=== PATIENT | male | born 1995 | race Caucasian/White ===

== ENCOUNTER 2017-12-23 05:29 | Inpatient (IN) ==
[2017-12-23 05:44] LABS: Bilirubin,Urine Negative (Negative); Blood,Urine Negative (Negative); Clarity,Urine Clear (Clear); Color,Urine Yellow (Yellow); Glucose,Urine (UA) Normal (Normal); Ketones,Urine Negative (Negative); Leukocyte Esterase,Urine Negative (Negative); Nitrite,Urine Negative (Negative); Protein,Urine Negative (Neg-Trace); Specific Gravity,Urine 1.009 (1.010-1.025); Urobilinogen,Urine Normal (Normal)
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
[2017-12-23 06:02] LABS: Basophils % 0.5 %; Eosinophils % 0.5 %; Hemoglobin 14.5 g/dL (12.9-16.9); Immature Granulocytes % 0.2 % (0-4); Lymphocytes # 2.9 K/mcL (0.6-4.6); Mean Corpuscular HGB Conc 35.4 g/dL (31.6-35.5); Mean Corpuscular Hemoglobin 33.5 pg (28.0-33.3); Mean Corpuscular Volume 94.7 fL (83.0-100.0); Monocytes # 0.4 K/mcL (0.0-1.3); Monocytes % 4.7 %; Neutrophils # 5.3 K/mcL (1.6-8.9); Platelet Count 385 K/mcL (140-400); Red Blood Count 4.33 M/mcL (4.19-5.50); Red Cell Distribution Width 11.7 % (11.5-14.5); Segmented Neutrophils % 61.1 %
[2017-12-23 06:11] LABS: Amphetamine Screen,Urine Negative ng/mL (Cutoff=1000); Barbiturate Screen,Urine Negative ng/mL (Cutoff=200); Benzodiazepines Screen,Urine Negative ng/mL (Cutoff=200); Cannabinoid Screen,Urine Positive ng/mL (Cutoff = 50); Cocaine Screen,Urine Negative ng/mL (Cutoff= 300); Opiate Screen,Urine Negative ng/mL (Cutoff=300); Phencyclidine Screen,Urine Negative ng/mL (Cutoff=25)
[2017-12-23 06:18] LABS: Acetaminophen < 10 mcg/mL (10-20)
[2017-12-23 06:22] LABS: BUN/Creatinine Ratio 7 (6-26); Blood Urea Nitrogen 6 mg/dL (6-20); Calcium 9.8 mg/dL (8.6-10.3); Carbon Dioxide 26 mEq/L (23-29); Chloride 108 mEq/L (98-107); Ethanol 98 mg/dL (Less than 10); Glucose 91 mg/dL (70-105); Osmolality,Calculated 293 (280-300); Potassium 3.5 mEq/L (3.5-5.1); Salicylate < 10.0 mg/dL (15.0-30.0); Sodium 143 mEq/L (136-145); eGFR For African Americans > 60 (> 60); eGFR For Non-African Americans > 60 (> 60)
--- NOTE | 2017-12-23 06:27 | Emergency Department Note ---
Disposition Clinical Impression: Acute anxiety Disposition: Still a Patient Condition: Fair Referrals: NONE,PCP [Primary Care Provider] - Forms: ED Satisfaction Letter General Adult HPI - General Chief complaint: ED Psychiatric Symptoms Stated complaint: anxiety depression Time Seen by Provider: 12/23/17 05:32 - Related Data Previous Rx's Medication Instructions Recorded TraZODone 100 mg PO HS PRN #60 tablet 06/20/16 clonazePAM [Klonopin] 0.5 mg PO TID #30 tablet 06/20/16 risperiDONE [RisperDAL] 2 mg PO BID #120 tablet 06/20/16 Naproxen [Naprosyn] 500 mg PO BID PRN #20 tablet 02/13/17 Allergies Allergy/AdvReac Type Severity Reaction Status Date / Time Penicillins Allergy Anaphylaxis Verified 10/03/15 10:55 Past Medical History - Past Medical History Medical history: Reports: no medical history Surgical history: Reports: no surgical history Psychiatric history: Reports: anxiety, depression - Social History Smoking Status: Current every day smoker Smokeless Tobacco Status: No Alcohol use: Reports: recent Drug use: Reports: marijuana, IV Drug Use Medical Decision Making - Lab Data Result diagrams: 12/23/17 05:32 12/23/17 05:32 Lab Results 12/23/17 12/23/17 12/23/17 Range/Units 05:32 05:32 05:35 WBC 8.7 (4.3-11.1) K/mcL RBC 4.33 (4.19-5.50) M/mcL Hgb 14.5 (12.9-16.9) g/dL Hct 41.0 (37.5-50.1) % MCV 94.7 (83.0-100.0) fL MCH 33.5 H (28.0-33.3) pg MCHC 35.4 (31.6-35.5) g/dL RDW 11.7 (11.5-14.5) % Plt Count 385 (140-400) K/mcL MPV 9.0 L (9.4-12.4) fL Immature Gran % 0.2 (0-4) % Seg Neutrophils % 61.1 % Lymphocytes % 33.0 % Monocytes % 4.7 % Eosinophils % 0.5 % Basophils % 0.5 % Neutrophils # 5.3 (1.6-8.9) K/mcL Lymphocytes # 2.9 (0.6-4.6) K/mcL Monocytes # 0.4 (0.0-1.3) K/mcL Eosinophils # 0.0 (0.0-0.6) K/mcL Basophils # 0.0 (0.0-0.2) K/mcL Sodium 143 (136-145) mEq/L Potassium 3.5 (3.5-5.1) mEq/L Chloride 108 H (98-107) mEq/L Carbon Dioxide 26 (23-29) mEq/L BUN 6 (6-20) mg/dL Creatinine 0.82 (0.70-1.30) mg/dL Est GFR ( Amer) > 60 (> 60) Est GFR (Non-Af Amer) > 60 (> 60) BUN/Creatinine Ratio 7 (6-26) Glucose 91 (70-105) mg/dL Calculated Osmolality 293 (280-300) Calcium 9.8 (8.6-10.3) mg/dL Urine Color Yellow (Yellow) Urine Clarity Clear (Clear) Urine pH 7.0 (5.0-8.0) pH Units Ur Specific [place] 1.009 L (1.010-1.025) Urine Protein Negative (Neg-Trace) mg/dL Urine Glucose (UA) Normal (Normal) mg/dL Urine Ketones Negative (Negative) mg/dL Urine Blood Negative (Negative) Urine Nitrite Negative (Negative) Urine Bilirubin Negative (Negative) Urine Urobilinogen Normal (Normal) mg/dL Ur Leukocyte Esterase Negative (Negative) Salicylates < 10.0 L (15.0-30.0) mg/dL Urine Opiates Screen (Fkzkxr=453) ng/mL Acetaminophen < 10 L (10-20) mcg/mL Ur Barbiturates Screen (Itdadu=414) ng/mL Ur Phencyclidine Scrn (Cutoff=25) ng/mL Ur Amphetamines Screen (Cqbobc=9369) ng/mL U Benzodiazepines Scrn (Fupxmh=141) ng/mL Urine Cocaine Screen (Cutoff= 300) ng/mL U Marijuana (THC) Screen (Cutoff = 50) ng/mL Ethyl Alcohol 98 H (Less than 10) mg/dL 12/23/17 Range/Units 05:35 WBC (4.3-11.1) K/mcL RBC (4.19-5.50) M/mcL Hgb (12.9-16.9) g/dL Hct (37.5-50.1) % MCV (83.0-100.0) fL MCH (28.0-33.3) pg MCHC (31.6-35.5) g/dL RDW (11.5-14.5) % Plt Count (140-400) K/mcL MPV (9.4-12.4) fL Immature Gran % (0-4) % Seg Neutrophils % % Lymphocytes % % Monocytes % % Eosinophils % % Basophils % % Neutrophils # (1.6-8.9) K/mcL Lymphocytes # (0.6-4.6) K/mcL Monocytes # (0.0-1.3) K/mcL Eosinophils # (0.0-0.6) K/mcL Basophils # (0.0-0.2) K/mcL Sodium (136-145) mEq/L Potassium (3.5-5.1) mEq/L Chloride (98-107) mEq/L Carbon Dioxide (23-29) mEq/L BUN (6-20) mg/dL Creatinine (0.70-1.30) mg/dL Est GFR ( Amer) (> 60) Est GFR (Non-Af Amer) (> 60) BUN/Creatinine Ratio (6-26) Glucose (70-105) mg/dL Calculated Osmolality (280-300) Calcium (8.6-10.3) mg/dL Urine Color (Yellow) Urine Clarity (Clear) Urine pH (5.0-8.0) pH Units Ur Specific [place] (1.010-1.025) Urine Protein (Neg-Trace) mg/dL Urine Glucose (UA) (Normal) mg/dL Urine Ketones (Negative) mg/dL Urine Blood (Negative) Urine Nitrite (Negative) Urine Bilirubin (Negative) Urine Urobilinogen (Normal) mg/dL Ur Leukocyte Esterase (Negative) Salicylates (15.0-30.0) mg/dL Urine Opiates Screen Negative (Yzahix=084) ng/mL Acetaminophen (10-20) mcg/mL Ur Barbiturates Screen Negative (Tugwmt=008) ng/mL Ur Phencyclidine Scrn Negative (Cutoff=25) ng/mL Ur Amphetamines Screen Negative (Vzxger=0916) ng/mL U Benzodiazepines Scrn Negative (Jiqzqk=671) ng/mL Urine Cocaine Screen Negative (Cutoff= 300) ng/mL U Marijuana (THC) Screen Positive H (Cutoff = 50) ng/mL Ethyl Alcohol (Less than 10) mg/dL Attestation Statement - Attestation Attestation: I examined this patient and my medical decision-making was reviewed with the Resident Physician. I agree with the documented findings, disposition and treatment plan as described except to the extent set forth below. Patient to the ED complaining of anxiety. Medication noncompliance. Feels like he is gone and the devil. Patient appears anxious and paranoid on examination. Cooperative. Lungs clear. Plan. Medical clearance and evaluation by 1A. his alcohol level here is in the 90s. We will need a repeat. Sign out to day shift.
[2017-12-23] MEDS ORDERED: *HR* LORazepam 2 MG/ML VIAL IM ONE (09:09)
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
[2017-12-23] MEDS ORDERED: *HR* LORazepam 2 MG/ML VIAL IM PRN (11:39)
[2017-12-23] MEDS ORDERED: Ibuprofen 400 MG TABLET PO PRN (11:39)
[2017-12-23] MEDS ORDERED: MOM Conc 10 ML UD.LIQ PO PRN (11:39)
[2017-12-23] MEDS ORDERED: *HR* LORazepam 1 MG TABLET PO PRN (11:39)
[2017-12-23] MEDS ORDERED: Haloperidol Lactate 5 MG/ML VIAL IM PRN (11:39)
[2017-12-23] MEDS ORDERED: Mag Hydrox/Al Hydrox/Simeth 30 ML UDC PO PRN (11:39)
[2017-12-23] MEDS: Nicotine 2 MG GUM BC PRN ×2 (13:13→17:32)
--- NOTE | 2017-12-23 17:03 | Psychiatry History & Physical ---
Date of Encounter: 12/23/17 Time of Encounter: 17:00 History of Present Illness Patient Stated Chief Complaint: I thought I was seeing deamons, I held my ativan so I could go to work Medicare Admission Attestation: For traditional Medicare patients the provided hospital inpatient services are reasonable and necessary and in the case of services not specified as inpatient -only under 42 CFR 419.22 (n), that they are appropriately provided as inpatient services in accordance 42 CFR 412.3. For Critical Access Hospital the patient may reasonably be expected to be discharged or transferred to a hospital within 96 hours after admission to the Critical Access Hospital. Admitted From: Emergency Dept Plans for Post Hospital Care: Home History of Present Illness: Mr. Ybarra is a 22 year old male The patient was previously hospitalized in 2016 he carries a diagnosis of bipolar disorder. The patient presented to the emergency room and an agitated state. He was seeing demons he talked about being able to see got into different ways. The patient was so agitated that he required emergency treatment. He was given Ativan 2 mg IM and home down sufficiently to be interviewed later in the day. The patient can recall hearing voices of bleeding things were not true and psychotic symptoms. The patient had managed his symptoms by taking sertraline in the morning and then holding onto his Ativan to take 2 mg prior to going to work. He likes his work environment and is called out sick today. The patient could not specify how long this episode going on he has been receiving outpatient mental health services. The reader is referred to the previous discharge summary. The patient's past psychiatric history reveals no suicide attempts. There is one entry about anxiety on the remission for the parts the record. Past medical history is negative for surgery. Negative for illnesses. The patient has an allergy to penicillins. The reader is referred to his outside records for meds. The patient has family history is significant for father with the drinking problem was later on psychiatric medicines and a paternal grandfather had problems. Is negative for drug abuse of than marijuana according to the patient. Social history reveals the patient went to 10th grade at age 18 he was able to get a job and support his mother and other family members because he needed it. There is no other source of income family. The review of systems essentially negative the patient describes himself as a healthy individual. The patient's past treatment has included risperidone sertraline he did not receive Geodon IM he is willing to consider Abilify Past Med Surg Social Fam HX - Past Medical History Source: patient Medical history: no medical history - Past Psychiatric History Psychiatric history: Reports: bipolar, previous psychiatric hospitalization Family psychiatric history: Yes Family History of Suicide: Unknown - Past Surgical History Surgical History: no surgical history - Social History Smoking Status: Current every day smoker Smokeless Tobacco Status: No Alcohol use: none, recent Drug use: marijuana, IV Drug Use Occupational status: employed Current living situation: Home - Independent, With Family Activity Level: Independent ambulation Recent Out of Country Travel Within the Last 8 Weeks: No Exposure or Possible Exposure to Illness During Travel: No Medications & Allergies LORazepam [Ativan] 0.5 mg PO BID 12/23/17 [History] LORazepam [Ativan] 1 mg PO HS 12/23/17 [History] Sertraline [Zoloft] 50 mg PO BID 12/23/17 [History] 3 Allergy/AdvReac Type Severity Reaction Status Date / Time Penicillins Allergy Anaphylaxis Verified 10/03/15 10:55 Review of Systems Psychiatric: Reports: abnormal sleep pattern, suicidal ideation, auditory hallucinations, visual hallucinations, mood swings Exam - HEENT Head exam IM: Present: atraumatic Eye exam IM: Present: EOMI, normal appearance, PERRL ENT exam IM: Present: normal exam - Neurological Neurological exam: Present: CN II-XII intact - Respiratory Respiratory exam IM: Present: CTAB - GI/Abdominal GI/Abdominal exam IM: Present: normal bowel sounds, soft. Absent: tenderness - Extremities Extremities exam IM: Present: full ROM - Skin Skin exam IM: Present: dry, warm - Constitutional Vitals: Temp Pulse Resp BP Pulse Ox 97.9 F 74 18 122/88 98 12/23/17 10:30 12/23/17 10:30 12/23/17 10:30 12/23/17 10:30 12/23/17 09:29 General appearance: age & developmentally appropriate, well-groomed, well- nourished - Musculoskeletal Gait: normal Station: relaxed Strength & Tone: normal for patient - Psychiatric Patient Orientation: Yes Person, Yes Time, Yes Place Level of alertness: Alert Behavior: calm, cooperative Psychomotor activity: Normal Eye Contact: Maintains Eye Contact Mood Description: Elevated, Expansive Affect description: congruent with mood, full range, anxious Speech Volume: Normal Speech pattern: normal rate, normal rhythm, normal tone, fluent, spontaneous Language & Vocabulary: consistent with education Thought Process: Linear, Goal Oriented Thought Content: No Suicidal ideation, No Homicidal ideation, No Overt delusions , Yes Mormonism delusion Perceptual Disturbances: Yes Auditory hallucinations, Yes Visual hallucinations Attention Span Ability: Capable of Focused Attention Memory Description: Grossly Intact Patient Reliability: Reliable Historian Fund of knowledge: Yes abstraction ability, Yes average, Yes aware of current events Intelligence Estimate: Average Judgment: Limited Insight: Partial Results - Labs Labs: Laboratory Last Values WBC 8.7 K/mcL (4.3-11.1) 12/23/17 05:32 RBC 4.33 M/mcL (4.19-5.50) 12/23/17 05:32 Hgb 14.5 g/dL (12.9-16.9) 12/23/17 05:32 Hct 41.0 % (37.5-50.1) 12/23/17 05:32 MCV 94.7 fL (83.0-100.0) 12/23/17 05:32 MCH 33.5 pg (28.0-33.3) H 12/23/17 05:32 MCHC 35.4 g/dL (31.6-35.5) 12/23/17 05:32 RDW 11.7 % (11.5-14.5) 12/23/17 05:32 Plt Count 385 K/mcL (140-400) 12/23/17 05:32 MPV 9.0 fL (9.4-12.4) L 12/23/17 05:32 Immature Gran % 0.2 % (0-4) 12/23/17 05:32 Seg Neutrophils % 61.1 % 12/23/17 05:32 Lymphocytes % 33.0 % 12/23/17 05:32 Monocytes % 4.7 % 12/23/17 05:32 Eosinophils % 0.5 % 12/23/17 05:32 Basophils % 0.5 % 12/23/17 05:32 Neutrophils # 5.3 K/mcL (1.6-8.9) 12/23/17 05:32 Lymphocytes # 2.9 K/mcL (0.6-4.6) 12/23/17 05:32 Monocytes # 0.4 K/mcL (0.0-1.3) 12/23/17 05:32 Eosinophils # 0.0 K/mcL (0.0-0.6) 12/23/17 05:32 Basophils # 0.0 K/mcL (0.0-0.2) 12/23/17 05:32 Sodium 143 mEq/L (136-145) 12/23/17 05:32 Potassium 3.5 mEq/L (3.5-5.1) 12/23/17 05:32 Chloride 108 mEq/L (98-107) H 12/23/17 05:32 Carbon Dioxide 26 mEq/L (23-29) 12/23/17 05:32 BUN 6 mg/dL (6-20) 12/23/17 05:32 Creatinine 0.82 mg/dL (0.70-1.30) 12/23/17 05:32 Est GFR ( Amer) > 60 (> 60) 12/23/17 05:32 Est GFR (Non-Af Amer) > 60 (> 60) 12/23/17 05:32 BUN/Creatinine Ratio 7 (6-26) 12/23/17 05:32 Glucose 91 mg/dL (70-105) 12/23/17 05:32 Calculated Osmolality 293 (280-300) 12/23/17 05:32 Calcium 9.8 mg/dL (8.6-10.3) 12/23/17 05:32 Urine Color Yellow (Yellow) 12/23/17 05:35 Urine Clarity Clear (Clear) 12/23/17 05:35 Urine pH 7.0 pH Units (5.0-8.0) 12/23/17 05:35 Ur Specific [place] 1.009 (1.010-1.025) L 12/23/17 05:35 Urine Protein Negative mg/dL (Neg-Trace) 12/23/17 05:35 Urine Glucose (UA) Normal mg/dL (Normal) 12/23/17 05:35 Urine Ketones Negative mg/dL (Negative) 12/23/17 05:35 Urine Blood Negative (Negative) 12/23/17 05:35 Urine Nitrite Negative (Negative) 12/23/17 05:35 Urine Bilirubin Negative (Negative) 12/23/17 05:35 Urine Urobilinogen Normal mg/dL (Normal) 12/23/17 05:35 Ur Leukocyte Esterase Negative (Negative) 12/23/17 05:35 Salicylates < 10.0 mg/dL (15.0-30.0) L 12/23/17 05:32 Urine Opiates Screen Negative ng/mL (Quhakb=104) 12/23/17 05:35 Acetaminophen < 10 mcg/mL (10-20) L 12/23/17 05:32 Ur Barbiturates Screen Negative ng/mL (Ajzhru=561) 12/23/17 05:35 Ur Phencyclidine Scrn Negative ng/mL (Cutoff=25) 12/23/17 05:35 Ur Amphetamines Screen Negative ng/mL (Szhada=3772) 12/23/17 05:35 U Benzodiazepines Scrn Negative ng/mL (Rpwcvo=582) 12/23/17 05:35 Urine Cocaine Screen Negative ng/mL (Cutoff= 300) 12/23/17 05:35 U Marijuana (THC) Screen Positive ng/mL (Cutoff = 50) H 12/23/17 05:35 Ethyl Alcohol 55 mg/dL (Less than 10) H 12/23/17 07:34 Assessment and Plan (1) Bipolar disorder, current episode manic severe with psychotic features Current visit: Yes Status: Acute Plan: Admit inpatient for safety and stabilization, Close observation, Encourage participation in unit milieu, Monitor sleep, Secure weapons Risks, benefits, side effects, alternatives discussed w/pt: Yes Patient agreeable to treatment: Yes Plans for Post Hospital Care: Home Estimated Length of Stay ( Days): 4
[2017-12-23] MEDS: *HR* LORazepam 1 MG TABLET PO SCH (22:03)
[2017-12-23] MEDS: traZODone 50 MG TABLET PO PRN (22:03)
[2017-12-24] MEDS: ARIPiprazole 10 MG TABLET PO SCH (08:34)
[2017-12-24] MEDS: *HR* LORazepam 1 MG TABLET PO SCH ×3 (08:34→21:40)
[2017-12-24] MEDS: Nicotine 2 MG GUM BC PRN ×2 (09:19→21:55)
--- NOTE | 2017-12-24 10:44 | Psychiatry Progress Note ---
Date of Encounter: 12/24/17 Time of Encounter: 10:40 Subjective Interval history: Client is still very anxious and jittery. Sweaty palms. Pleasant but jumpy. Wanting a higher dose of Ativan. Already scheduled for three times a day. Discussed risk for increased tolerance. Suggested he try prn Vistaril for breakthrough symptoms. Requesting Buspar as this reportedly helped someone he met who also had anxiety. Discussed how Buspar is not an immediate fix but can help with anxiety over time. Took first dose of Abilify today. Denies side effects but too early to know if it will provide any benefit. Client endorses SI but denies any intent. More of a passive wish given his high levels of anxiety. Will order Buspar and prn Vistaril. Continue Abilify and Ativan for now since these meds are new. Review of Systems Constitutional: Denies: fever, chills, weakness, weight change Eyes: Denies: eye pain, vision change Ears, Nose, Throat: Denies: ear pain, throat pain, dental pain, hearing loss, congestion Cardiovascular: Denies: chest pain, palpitations, dyspnea on exertion Respiratory: Denies: cough, dyspnea, wheezes Gastrointestinal: Denies: abdominal pain, nausea, vomiting, diarrhea, constipation Musculoskeletal: Denies: joint swelling, joint pain Neurological: Denies: headache, weakness, numbness, memory loss Psychiatric: Reports: abnormal sleep pattern, suicidal ideation, auditory hallucinations, visual hallucinations, mood swings Results - Vital Signs Vital Signs: Temp Pulse Resp BP Pulse Ox 98.6 F 73 20 120/74 98 12/24/17 09:00 12/24/17 09:00 12/24/17 09:00 12/24/17 09:00 12/23/17 09:29 Assessment and Plan (1) Bipolar disorder, current episode manic severe with psychotic features Current visit: Yes Status: Acute Plan: Continue hospitalization, Close observation, Suicide Precautions per unit protocol, Encourage participation in unit milieu, Group Therapy, Monitor sleep, Monitor appetite Risks, benefits, side effects, alternatives discussed w/pt: Yes Patient agreeable to treatment: Yes Consult Discharge Plan - Plan Referrals: NONE,PCP [Primary Care Provider] - Psychiatry Exam - Constitutional Vitals: Temp Pulse Resp BP Pulse Ox 98.6 F 73 20 120/74 98 12/24/17 09:00 12/24/17 09:00 12/24/17 09:00 12/24/17 09:00 12/23/17 09:29 General appearance: age & developmentally appropriate, well-groomed, well- nourished - Musculoskeletal Gait: normal Station: shaky Strength & Tone: normal for patient - Psychiatric Patient Orientation: Yes Person, Yes Time, Yes Place Level of alertness: Alert Behavior: anxious Psychomotor activity: Increased Eye Contact: Maintains Eye Contact Mood Description: Anxious Affect description: congruent with mood Speech Volume: Normal Speech pattern: normal rate, normal rhythm, normal tone, fluent, spontaneous Language & Vocabulary: consistent with education Thought Process: Linear Thought Content: Yes Suicidal ideation, No Homicidal ideation, No Overt delusions Perceptual Disturbances: No Auditory hallucinations, No Visual hallucinations Attention Span Ability: Capable of Focused Attention Memory Description: Grossly Intact Patient Reliability: Reliable Historian Fund of knowledge: Yes abstraction ability, Yes aware of current events Intelligence Estimate: Average Judgment: Fair Insight: Partial
[2017-12-24] MEDS: traZODone 50 MG TABLET PO PRN (21:40)
[2017-12-25] MEDS: ARIPiprazole 10 MG TABLET PO SCH (08:48)
[2017-12-25] MEDS: *HR* LORazepam 1 MG TABLET PO SCH ×3 (08:48→20:48)
[2017-12-25] MEDS: Nicotine 2 MG GUM BC PRN ×4 (09:51→21:07)
--- NOTE | 2017-12-25 16:16 | Psychiatry Progress Note ---
Date of Encounter: 12/25/17 Time of Encounter: 15:45 Subjective Interval history: Patient seen for follow-up. Case discussed with the treatment team. Staff report patient is cooperative, medication compliant, denies suicidal ideation and attend group activities. Review of Systems Psychiatric: Reports: abnormal sleep pattern, suicidal ideation, auditory hallucinations, visual hallucinations, mood swings Results - Vital Signs Vital Signs: Temp Pulse Resp BP Pulse Ox 98.4 F 83 16 116/71 98 12/25/17 09:00 12/25/17 09:00 12/25/17 09:00 12/25/17 09:00 12/23/17 09:29 Assessment and Plan (1) Bipolar disorder Current visit: No Status: Acute Plan: Continue hospitalization, Close observation, Suicide Precautions per unit protocol, Encourage participation in unit milieu, Group Therapy, Monitor sleep, Monitor appetite Risks, benefits, side effects, alternatives discussed w/pt: Yes Patient agreeable to treatment: Yes Qualifiers: Active/Remission status: currently active Current bipolar episode type: manic Current episode severity: moderate Qualified Code(s): F31.12 - Bipolar disorder, current episode manic without psychotic features, moderate Consult Discharge Plan - Plan Referrals: Anand Norton [facility] [Outside] - 12/28/17 10:00 am (The above appointment is with Yamilet Rao for outpatient mental health counseling services. ) Mau Srivastava PAC [Physician Customer Service Assistant] - 01/03/18 10:00 am (The above appointment is with Mau Srivastava for medication management services.) Psychiatry Exam - Constitutional Vitals: Temp Pulse Resp BP Pulse Ox 98.4 F 83 16 116/71 98 12/25/17 09:00 12/25/17 09:00 12/25/17 09:00 12/25/17 09:00 12/23/17 09:29 General appearance: age & developmentally appropriate, well-groomed, well- nourished, bizarre, thin - Musculoskeletal Gait: normal Station: relaxed Strength & Tone: normal for patient - Psychiatric Patient Orientation: Yes Person, Yes Time, Yes Place Level of alertness: Alert Behavior: cooperative, nervous, talkative, dramatic Psychomotor activity: Increased Eye Contact: Intense Contact Mood Description: Euthymic/stable, Labile Affect description: congruent with mood, labile Speech Volume: Normal Speech pattern: normal rate, normal rhythm, normal tone, fluent, spontaneous, excessive, pressured Language & Vocabulary: consistent with education Thought Process: Linear, Goal Oriented Thought Content: No Suicidal ideation, No Homicidal ideation, No Overt delusions Perceptual Disturbances: No Auditory hallucinations, No Visual hallucinations Attention Span Ability: Capable of Focused Attention Memory Description: Grossly Intact Patient Reliability: Reliable Historian Fund of knowledge: Yes abstraction ability, Yes aware of current events Intelligence Estimate: Average Judgment: Limited Insight: Partial
[2017-12-25] MEDS: traZODone 50 MG TABLET PO PRN (20:48)
[2017-12-25] MEDS: hydrOXYzine pamoate 25 MG CAPSULE PO PRN (20:48)
[2017-12-26] MEDS: Nicotine 2 MG GUM BC PRN ×4 (09:19→20:14)
[2017-12-26] MEDS: *HR* LORazepam 1 MG TABLET PO SCH ×3 (09:19→20:14)
[2017-12-26] MEDS: ARIPiprazole 10 MG TABLET PO SCH (09:19)
--- NOTE | 2017-12-26 16:09 | Psychiatry Progress Note ---
Date of Encounter: 12/26/17 Time of Encounter: 16:00 Subjective Interval history: Patient seen for follow-up. Case discussed was treatment team. Staff report patient is cooperative medication compliant, attended groups and showing interest in treatment and well motivated. Denies suicidal ideation. No manic behavior, speech is not pressured denies any problem with sleep. Review of Systems Psychiatric: Reports: abnormal sleep pattern, suicidal ideation, auditory hallucinations, visual hallucinations, mood swings Results - Vital Signs Vital Signs: Temp Pulse Resp BP Pulse Ox 97.1 F L 96 16 106/63 98 12/26/17 08:48 12/26/17 08:48 12/26/17 08:48 12/26/17 08:48 12/23/17 09:29 Assessment and Plan (1) Bipolar disorder Current visit: No Status: Acute Plan: Continue hospitalization, Close observation, Suicide Precautions per unit protocol, Encourage participation in unit milieu, Group Therapy, Monitor sleep, Monitor appetite Risks, benefits, side effects, alternatives discussed w/pt: Yes Patient agreeable to treatment: Yes Qualifiers: Active/Remission status: currently active Current bipolar episode type: manic Current episode severity: moderate Qualified Code(s): F31.12 - Bipolar disorder, current episode manic without psychotic features, moderate Consult Discharge Plan - Plan Referrals: Anand Norton [facility] [Outside] - 12/28/17 10:00 am (The above appointment is with Yamilet Rao for outpatient mental health counseling services. ) Mau Srivastava PAC [Physician Airborne Electronics Analyst] - 01/03/18 10:00 am (The above appointment is with Mau Srivastava for medication management services.) Psychiatry Exam - Constitutional Vitals: Temp Pulse Resp BP Pulse Ox 97.1 F L 96 16 106/63 98 12/26/17 08:48 12/26/17 08:48 12/26/17 08:48 12/26/17 08:48 12/23/17 09:29 General appearance: age & developmentally appropriate, well-groomed, well- nourished - Musculoskeletal Gait: normal Station: relaxed Strength & Tone: normal for patient - Psychiatric Patient Orientation: Yes Person, Yes Time, Yes Place Level of alertness: Alert Behavior: calm, cooperative, anxious Psychomotor activity: Normal Eye Contact: Maintains Eye Contact Mood Description: Euthymic/stable Affect description: congruent with mood, anxious Speech Volume: Normal Speech pattern: normal rate, normal rhythm, normal tone, fluent, spontaneous Language & Vocabulary: consistent with education Thought Process: Linear, Goal Oriented Thought Content: No Suicidal ideation, No Homicidal ideation, No Overt delusions Perceptual Disturbances: No Auditory hallucinations, No Visual hallucinations Attention Span Ability: Capable of Focused Attention Memory Description: Grossly Intact Patient Reliability: Reliable Historian Fund of knowledge: Yes abstraction ability, Yes aware of current events Intelligence Estimate: Average Judgment: Limited Insight: Partial
[2017-12-26] MEDS: traZODone 50 MG TABLET PO PRN (20:14)
[2017-12-26] MEDS: hydrOXYzine pamoate 25 MG CAPSULE PO PRN (20:14)
[2017-12-27] MEDS: ARIPiprazole 10 MG TABLET PO SCH (08:53)
[2017-12-27] MEDS: *HR* LORazepam 1 MG TABLET PO SCH ×2 (08:53→15:42)
[2017-12-27] MEDS: Nicotine 2 MG GUM BC PRN ×2 (08:54→12:42)
[2017-12-27] MEDS: hydrOXYzine pamoate 25 MG CAPSULE PO PRN (09:30)
[2017-12-27 10:07] VITALS: BP 117/80
--- NOTE | 2017-12-27 13:38 | Discharge Summary ---
Date of Encounter: 12/27/17 Time of Encounter: 13:36 Diagnosis - Discharge Diagnosis (1) Bipolar disorder, current episode manic severe with psychotic features Status: Acute (2) Cannabis dependence Status: Acute Medications - Discharge Medications Prescriptions: ARIPiprazole [Abilify] 10 mg PO DAILY #30 tablet Buspirone HCl [Buspar] 7.5 mg PO BID #30 tablet hydrOXYzine pamoate [HydrOXYzine Pamoate] 25 mg PO TID PRN #30 capsule PRN Reason: Anxiety traZODone [TraZODone] 50 mg PO HS PRN #30 tablet PRN Reason: Insomnia LORazepam [Ativan] 0.5 mg PO BID 12/23/17 [History] LORazepam [Ativan] 1 mg PO HS 12/23/17 [History] ARIPiprazole [Abilify] 10 mg PO DAILY #30 tablet 12/27/17 [Rx] Buspirone HCl [Buspar] 7.5 mg PO BID #30 tablet 12/27/17 [Rx] hydrOXYzine pamoate [HydrOXYzine Pamoate] 25 mg PO TID PRN #30 capsule 12/27/17 [Rx] traZODone [TraZODone] 50 mg PO HS PRN #30 tablet 12/27/17 [Rx] 3 Allergy/AdvReac Type Severity Reaction Status Date / Time Penicillins Allergy Anaphylaxis Verified 10/03/15 10:55 Provider Date of admission: 12/23/17 10:17 Primary care physician: PCP NONE Discharging clinician: Bhargav Villar Psychiatry Exam - Constitutional Vitals: Temp Pulse Resp BP Pulse Ox 98.1 F 80 14 117/80 98 12/27/17 09:00 12/27/17 09:00 12/27/17 09:00 12/27/17 09:00 12/23/17 09:29 General appearance: age & developmentally appropriate, well-groomed, well- nourished, bizarre - Musculoskeletal Gait: normal Station: relaxed Strength & Tone: normal for patient - Psychiatric Patient Orientation: Yes Person, Yes Time, Yes Place Level of alertness: Alert Behavior: calm, cooperative Psychomotor activity: Increased Eye Contact: Maintains Eye Contact Mood Description: Euthymic/stable, Labile Affect description: congruent with mood, full range Speech Volume: Normal Speech pattern: normal rate, normal rhythm, normal tone, fluent, spontaneous Language & Vocabulary: consistent with education Thought Process: Linear, Goal Oriented Thought Content: No Suicidal ideation, No Homicidal ideation, No Overt delusions Perceptual Disturbances: No Auditory hallucinations, No Visual hallucinations Attention Span Ability: Capable of Focused Attention Memory Description: Grossly Intact Patient Reliability: Reliable Historian Fund of knowledge: Yes abstraction ability, Yes aware of current events Intelligence Estimate: Average Judgment: Limited Insight: Partial Hospital Course Hospital course: Mr. Ybarra is a 22 year old male admitted for treatment of manic episode with psychosis and intoxication was alcohol and THC. For details of the admission please see H&P On the unit patient was initially hallucinating anxious agitated and labile. He was started on Abilify and BuSpar in addition to trazodone and lorazepam. Patient reported improved sleep and appetite, his manic behavior improved, speech was less pressured, affect was still labile, he was medication compliant and attending groups and activities. He interacted with peers and staff. He had no episodes of agitation and denied any symptoms of psychosis. On discharge patient was medically stable, tolerating medication without side effects, he was educated about his medication noncompliance with treatment and advised on substance abuse and alcohol. Prior to discharge she denied any hallucination or suicidal ideation he was medically stable and his discharge plans were completed by social work. He is discharged in stable condition. - Time Spent with Patient Total time spent providing and/or coordinating discharge services: Less than 30 minutes Assessment and Plan - Patient/Caregiver Discharge Instructions Activity: resume usual activities as tolerated Diet: regular diet - Follow up Plan Follow up with: Anand Norton [facility] [Outside] - 12/28/17 10:00 am (The above appointment is with Yamilet Rao for outpatient mental health counseling services. ) Mau Srivastava PAC [Physician Research Software Engineer] - 01/03/18 10:00 am (The above appointment is with Mau Srivastava for medication management services.) Functional capacity at discharge: independent ambulation Overall status at discharge: Stable Disposition: Home, Self-Care Quality - Multiple Antipsychotics Patient discharged on 2 or more antipsychotic medications: No Procedures - Procedures Procedures: Medication Management, Crisis Stabilization, Supportive Therapy, Group Therapy, Psychoeducational Therapy
== END 2017-12-27 16:00 | disposition home or self-care (01) | DRG 753 ==
LOC: EMEROO 05:29 → 1ANU 10:17 → SUATTDRO 10:17 → 1ANU 10:21
PROVIDERS: ADMIT Psychiatry & Neurology Forensic Psychiatry; ATTEND Psychiatry & Neurology Psychiatry

== ENCOUNTER 2018-05-23 08:53 | Inpatient (IN) ==
--- NOTE | 2018-05-23 09:10 | Emergency Department Note ---
Disposition Clinical Impression: Manic behavior Disposition: Admitted As Inpatient Condition: Good General Adult HPI - General Chief complaint: ED Altered Mental Status Stated complaint: "erratic behavior" Time Seen by Provider: 05/23/18 09:06 - History of Present Illness Pain Scale: 0 - Related Data Home Medications Medication Instructions Recorded Confirmed Unable To Obtain [Unable to Obtain] 05/23/18 05/23/18 Allergies Allergy/AdvReac Type Severity Reaction Status Date / Time Penicillins Allergy Anaphylaxis Verified 10/03/15 10:55 Past Medical History - Past Medical History Medical history: Reports: no medical history Surgical history: Reports: no surgical history Psychiatric history: Reports: bipolar, previous psychiatric hospitalization - Social History Smoking Status: Current every day smoker Smokeless Tobacco Status: No Alcohol use: Reports: none Drug use: Reports: marijuana Course Vital Signs Temperature 98.1 F 05/23/18 08:58 Pulse Rate 104 05/23/18 08:58 Respiratory Rate 20 05/23/18 08:58 Blood Pressure 138/77 05/23/18 08:58 O2 Sat by Pulse Oximetry 97 05/23/18 08:58 Temperature 98.1 F 05/23/18 09:27 Pulse Rate 104 05/23/18 09:27 Respiratory Rate 20 05/23/18 09:27 Blood Pressure 138/77 05/23/18 09:27 O2 Sat by Pulse Oximetry 97 05/23/18 09:27 Oxygen Delivery Oxygen Delivery Room Air Medical Decision Making - Lab Data Result diagrams: 05/23/18 09:17 05/23/18 09:17 Lab Results 05/23/18 05/23/18 05/23/18 Range/Units 09:17 09:17 10:43 WBC 12.3 H (4.3-11.1) K/mcL RBC 4.06 L (4.19-5.50) M/mcL Hgb 13.2 (12.9-16.9) g/dL Hct 37.7 (37.5-50.1) % MCV 92.9 (83.0-100.0) fL MCH 32.5 (28.0-33.3) pg MCHC 35.0 (31.6-35.5) g/dL RDW 12.0 (11.5-14.5) % Plt Count 279 (140-400) K/mcL MPV 8.9 L (9.4-12.4) fL Immature Gran % 0.3 (0-4) % Seg Neutrophils % 71.7 % Lymphocytes % 20.7 % Monocytes % 6.5 % Eosinophils % 0.5 % Basophils % 0.3 % Neutrophils # 8.8 (1.6-8.9) K/mcL Lymphocytes # 2.5 (0.6-4.6) K/mcL Monocytes # 0.8 (0.0-1.3) K/mcL Eosinophils # 0.1 (0.0-0.6) K/mcL Basophils # 0.0 (0.0-0.2) K/mcL Sodium 141 (136-145) mEq/L Potassium 4.0 (3.5-5.1) mEq/L Chloride 109 H (98-107) mEq/L Carbon Dioxide 25 (23-29) mEq/L BUN 15 (6-20) mg/dL Creatinine 1.17 (0.70-1.30) mg/dL Est GFR ( Amer) > 60 (> 60) Est GFR (Non-Af Amer) > 60 (> 60) BUN/Creatinine Ratio 13 (6-26) Glucose 106 H (70-105) mg/dL Calculated Osmolality 293 (280-300) Calcium 10.1 (8.6-10.3) mg/dL Total Bilirubin 0.4 (0.3-1.0) mg/dL Direct Bilirubin 0.1 (0.0-0.2) mg/dL Indirect Bilirubin 0.3 (0.0-1.2) mg/dL AST 23 (13-39) Units/L ALT 24 (7-52) Units/L Alkaline Phosphatase 73 (34-104) Units/L Serum Total Protein 7.6 (6.4-8.9) g/dL Albumin 4.9 (3.5-5.7) g/dL Globulin 2.7 (2.4-3.5) g/dL Albumin/Globulin Ratio 1.8 (1.1-2.2) TSH 0.948 (0.340-5.600) mcIU/mL Salicylates < 2.5 L (15.0-30.0) mg/dL Urine Opiates Screen Negative (Gkwuxt=653) ng/mL Acetaminophen < 10 L (10-20) mcg/mL Ur Barbiturates Screen Negative (Mjjwzd=084) ng/mL Ur Phencyclidine Scrn Negative (Cutoff=25) ng/mL Ur Amphetamines Screen Negative (Vvadhu=3278) ng/mL U Benzodiazepines Scrn Negative (Odlvdk=108) ng/mL Urine Cocaine Screen Negative (Cutoff= 300) ng/mL U Marijuana (THC) Screen Positive H (Cutoff = 50) ng/mL Ur Drug Screen Interp See Below Ethyl Alcohol 11 H (Less than 10) mg/dL Attestation Statement - Attestation Attestation: I examined this patient and my medical decision-making was reviewed with the Resident Physician. I agree with the documented findings, disposition and treatment plan as described except to the extent set forth below. [id number] time provided Patient arrives in the care of his soon-to-be stepmother with reports of recent erratic behavior. The patient states he feels anxious and depressed. He appears in no acute distress on arrival.
--- NOTE | 2018-05-23 09:20 | Emergency Department Note ---
Disposition Clinical Impression: Manic behavior Disposition: Admitted As Inpatient Condition: Good Time of Disposition: 16:31 General Adult HPI - General Chief complaint: ED Altered Mental Status Stated complaint: "erratic behavior" Time Seen by Provider: 05/23/18 09:06 Nursing Notes Reviewed: Yes Vital Signs Reviewed: Yes - History of Present Illness HPI Narrative: 23-year-old male presents from home with his father's fiance (soon-to-be stepmother) bedside for evaluation of what she describes as erratic behavior. Patient has a history of anxiety, depression, bipolar with manic tendencies. Managed by [facility]. Fever described as awakening family member at 2 :30 this morning believing it was 7:30 PM. Throughout the night, he was awake and left the kitchen EMS. Patient's father left the house for work at 6:30 in the morning to see the patient in the back of a police car, handcuffed and naked. He apparently been running around the neighborhood nude knocking on neighbors doors believing those houses were his house. It took the patient approximate 1 hour to get dressed as he was continuously distracted. This is different than his typical manic episodes wherein he is traditionally angry and argumentative. Patient's medications include hydroxyzine, lorazepam, trazodone, clonidine, benztropine, Ativan ROS: Positive: As above Negative: Fever, chills, nausea, vomiting, chest pains, palpitations, diaphoresis, falls, trauma Pain Scale: 0 - Related Data Home Medications Medication Instructions Recorded Confirmed Unable To Obtain [Unable to Obtain] 05/23/18 05/23/18 Allergies Allergy/AdvReac Type Severity Reaction Status Date / Time Penicillins Allergy Anaphylaxis Verified 10/03/15 10:55 All systems ED: reviewed and negative except as stated. Review of Systems: As Per HPI Past Medical History - Past Medical History Medical history: Reports: no medical history Surgical history: Reports: no surgical history Psychiatric history: Reports: bipolar, previous psychiatric hospitalization - Social History Smoking Status: Current every day smoker Smokeless Tobacco Status: No Alcohol use: Reports: none Drug use: Reports: marijuana Physical Exam Vital Signs Reviewed General: Patient is alert, oriented, and in no acute distress. Head: atraumatic, normocephalic Eye: normal appearance, PERRL, EOMI, no scleral icterus, no conjunctival injection ENT: mucous membranes moist, normal external ear exam Neck: normal inspection, trachea midline, full ROM Chest: normal inspection, symmetric chest rise Respiratory: Good respiratory effort. Bilateral breath sounds are clear without wheezing, crackles, or rhonchi. Cardiovascular: Regular rate and rhythm. No clicks, rubs, gallops, or murmors. Normal heart sounds. Abdomen: Bowel sounds present normoactive x-4 quadrants. Abdomen is soft, nondistended, and nontender. No guarding or rebound. No organomegaly noted. Musculoskeletal: Spontaneously moving all extremities. Skin: warm, dry, intact. Neuro: Alert and oriented x4. Sensation light touch intact. Psych: Patient's affect is appropriate for situation. Course Course Narrative: We will attempt medical clearance. Patient is currently cooperative. Patient went to the bathroom to provide a urine specimen. He urinated all over the commode and floor, no specimen provided in the specimen cup. Patient is medically cleared at this time. He continues to walk around the room touching everything that he can and is unable to sit still. Patient is accepted to inpatient mental health services. Vital Signs Temperature 98.1 F 05/23/18 08:58 Pulse Rate 104 05/23/18 08:58 Respiratory Rate 20 05/23/18 08:58 Blood Pressure 138/77 05/23/18 08:58 O2 Sat by Pulse Oximetry 97 05/23/18 08:58 Temperature 98.1 F 05/23/18 09:27 Pulse Rate 104 05/23/18 09:27 Respiratory Rate 20 05/23/18 09:27 Blood Pressure 138/77 05/23/18 09:27 O2 Sat by Pulse Oximetry 97 05/23/18 09:27 Oxygen Delivery Oxygen Delivery Room Air Medical Decision Making - Lab Data Result diagrams: 05/23/18 09:17 05/23/18 09:17 Lab Results 05/23/18 05/23/18 05/23/18 Range/Units 09:17 09:17 10:43 WBC 12.3 H (4.3-11.1) K/mcL RBC 4.06 L (4.19-5.50) M/mcL Hgb 13.2 (12.9-16.9) g/dL Hct 37.7 (37.5-50.1) % MCV 92.9 (83.0-100.0) fL MCH 32.5 (28.0-33.3) pg MCHC 35.0 (31.6-35.5) g/dL RDW 12.0 (11.5-14.5) % Plt Count 279 (140-400) K/mcL MPV 8.9 L (9.4-12.4) fL Immature Gran % 0.3 (0-4) % Seg Neutrophils % 71.7 % Lymphocytes % 20.7 % Monocytes % 6.5 % Eosinophils % 0.5 % Basophils % 0.3 % Neutrophils # 8.8 (1.6-8.9) K/mcL Lymphocytes # 2.5 (0.6-4.6) K/mcL Monocytes # 0.8 (0.0-1.3) K/mcL Eosinophils # 0.1 (0.0-0.6) K/mcL Basophils # 0.0 (0.0-0.2) K/mcL Sodium 141 (136-145) mEq/L Potassium 4.0 (3.5-5.1) mEq/L Chloride 109 H (98-107) mEq/L Carbon Dioxide 25 (23-29) mEq/L BUN 15 (6-20) mg/dL Creatinine 1.17 (0.70-1.30) mg/dL Est GFR ( Amer) > 60 (> 60) Est GFR (Non-Af Amer) > 60 (> 60) BUN/Creatinine Ratio 13 (6-26) Glucose 106 H (70-105) mg/dL Calculated Osmolality 293 (280-300) Calcium 10.1 (8.6-10.3) mg/dL Total Bilirubin 0.4 (0.3-1.0) mg/dL Direct Bilirubin 0.1 (0.0-0.2) mg/dL Indirect Bilirubin 0.3 (0.0-1.2) mg/dL AST 23 (13-39) Units/L ALT 24 (7-52) Units/L Alkaline Phosphatase 73 (34-104) Units/L Serum Total Protein 7.6 (6.4-8.9) g/dL Albumin 4.9 (3.5-5.7) g/dL Globulin 2.7 (2.4-3.5) g/dL Albumin/Globulin Ratio 1.8 (1.1-2.2) TSH 0.948 (0.340-5.600) mcIU/mL Salicylates < 2.5 L (15.0-30.0) mg/dL Urine Opiates Screen Negative (Bdznzq=668) ng/mL Acetaminophen < 10 L (10-20) mcg/mL Ur Barbiturates Screen Negative (Cabnof=926) ng/mL Ur Phencyclidine Scrn Negative (Cutoff=25) ng/mL Ur Amphetamines Screen Negative (Uwpqnk=8643) ng/mL U Benzodiazepines Scrn Negative (Djrobi=001) ng/mL Urine Cocaine Screen Negative (Cutoff= 300) ng/mL U Marijuana (THC) Screen Positive H (Cutoff = 50) ng/mL Ur Drug Screen Interp See Below Ethyl Alcohol 11 H (Less than 10) mg/dL
[2018-05-23 09:30] LABS: Basophils % 0.3 %; Eosinophils # 0.1 K/mcL (0.0-0.6); Eosinophils % 0.5 %; Hematocrit 37.7 % (37.5-50.1); Hemoglobin 13.2 g/dL (12.9-16.9); Immature Granulocytes % 0.3 % (0-4); Lymphocytes # 2.5 K/mcL (0.6-4.6); Lymphocytes % 20.7 %; Mean Corpuscular Hemoglobin 32.5 pg (28.0-33.3); Mean Corpuscular Volume 92.9 fL (83.0-100.0); Mean Platelet Volume 8.9 fL (9.4-12.4); Monocytes # 0.8 K/mcL (0.0-1.3); Monocytes % 6.5 %; Neutrophils # 8.8 K/mcL (1.6-8.9); Platelet Count 279 K/mcL (140-400); Red Blood Count 4.06 M/mcL (4.19-5.50); Segmented Neutrophils % 71.7 %
[2018-05-23 10:04] LABS: Alanine Aminotransferase 24 Units/L (7-52); Albumin 4.9 g/dL (3.5-5.7); Albumin/Globulin Ratio 1.8 (1.1-2.2); Alkaline Phosphatase 73 Units/L (34-104); Aspartate Amino Transferase 23 Units/L (13-39); BUN/Creatinine Ratio 13 (6-26); Bilirubin,Direct 0.1 mg/dL (0.0-0.2); Bilirubin,Indirect 0.3 mg/dL (0.0-1.2); Bilirubin,Total 0.4 mg/dL (0.3-1.0); Blood Urea Nitrogen 15 mg/dL (6-20); Calcium 10.1 mg/dL (8.6-10.3); Carbon Dioxide 25 mEq/L (23-29); Chloride 109 mEq/L (98-107); Ethanol 11 mg/dL (Less than 10); Globulin 2.7 g/dL (2.4-3.5); Glucose 106 mg/dL (70-105); Osmolality,Calculated 293 (280-300); Salicylate < 2.5 mg/dL (15.0-30.0); Sodium 141 mEq/L (136-145); Thyroid Stimulating Hormone 0.948 mcIU/mL (0.340-5.600); Total Protein 7.6 g/dL (6.4-8.9); eGFR For Non-African Americans > 60 (> 60)
[2018-05-23 10:09] LABS: Acetaminophen < 10 mcg/mL (10-20)
[2018-05-23 11:33] LABS: Amphetamine Screen,Urine Negative ng/mL (Cutoff=1000); Barbiturate Screen,Urine Negative ng/mL (Cutoff=200); Benzodiazepines Screen,Urine Negative ng/mL (Cutoff=200); Cannabinoid Screen,Urine Positive ng/mL (Cutoff = 50); Cocaine Screen,Urine Negative ng/mL (Cutoff= 300); Opiate Screen,Urine Negative ng/mL (Cutoff=300); Phencyclidine Screen,Urine Negative ng/mL (Cutoff=25)
[2018-05-23] MEDS ORDERED: *HR* LORazepam 2 MG/ML VIAL IM ONE (14:31)
[2018-05-23] MEDS ORDERED: Haloperidol Lactate 5 MG/ML VIAL IM ONE (14:31)
[2018-05-23] MEDS ORDERED: MOM Conc 10 ML UD.LIQ PO PRN (16:47)
[2018-05-23] MEDS ORDERED: hydrOXYzine pamoate 25 MG CAPSULE PO PRN (16:47)
[2018-05-23] MEDS ORDERED: Ibuprofen 400 MG TABLET PO PRN (16:47)
[2018-05-23] MEDS ORDERED: traZODone 50 MG TABLET PO PRN (16:47)
[2018-05-23] MEDS ORDERED: Haloperidol Lactate 5 MG/ML VIAL IM PRN (16:47)
[2018-05-23] MEDS ORDERED: Mag Hydrox/Al Hydrox/Simeth 30 ML UDC PO PRN (16:47)
[2018-05-23] MEDS ORDERED: *HR* LORazepam 1 MG TABLET PO PRN (16:47)
[2018-05-23] MEDS ORDERED: *HR* LORazepam 2 MG/ML VIAL IM PRN (16:47)
[2018-05-23] MEDS: Nicotine 2 MG GUM BC PRN (17:26)
[2018-05-23] MEDS ORDERED: ARIPiprazole 10 MG TABLET PO SCH (21:00)
[2018-05-23] MEDS: cloNIDine HCl 0.1 MG TABLET PO SCH (21:18)
[2018-05-23] MEDS: hydrOXYzine pamoate 25 MG CAPSULE PO PRN (22:40)
[2018-05-24] MEDS: *HR* LORazepam 0.5 MG TABLET PO PRN ×2 (05:26→13:55)
[2018-05-24] MEDS: Nicotine 2 MG GUM BC PRN ×2 (12:37→18:16)
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
[2018-05-24] MEDS: hydrOXYzine pamoate 25 MG CAPSULE PO PRN (17:49)
[2018-05-24] MEDS: cloNIDine HCl 0.1 MG TABLET PO SCH (20:21)
[2018-05-24] MEDS: Divalproex (24 HR) 500 MG TABLET PO SCH (20:21)
[2018-05-24] MEDS: ARIPiprazole 10 MG TABLET PO SCH (20:22)
[2018-05-25] MEDS: hydrOXYzine pamoate 25 MG CAPSULE PO PRN ×3 (04:55→17:29)
[2018-05-25] MEDS: Nicotine 2 MG GUM BC PRN ×3 (09:16→18:36)
--- NOTE | 2018-05-25 09:19 | Psychiatry Progress Note ---
Date of Encounter: 05/25/18 Time of Encounter: 09:17 Subjective Interval history: Client is still psychotic but staff report he is improving some. In community was wandering around naked and knocking on neighbors doors. Likely noncompliant with meds. Lives with father who is overwhelmed with helping son manage his illness. May need to look at alternative housing. Client reports he is supposed to be on Seroquel but it is not ordered here. Will need to recheck home meds with pharmacy. Anxious but coping. Tends to wander into peers rooms and will stare at them. Possibly some catatonia. Not ready for discharge. Review of Systems Constitutional: Denies: fever, chills, weakness, weight change Eyes: Denies: eye pain, vision change Ears, Nose, Throat: Denies: ear pain, throat pain, dental pain, hearing loss, congestion Cardiovascular: Denies: chest pain, palpitations, dyspnea on exertion Respiratory: Denies: cough, dyspnea, wheezes Gastrointestinal: Denies: abdominal pain, nausea, vomiting, diarrhea, constipation Musculoskeletal: Denies: joint swelling, joint pain Neurological: Denies: headache, weakness, numbness, memory loss Results - Vital Signs Vital Signs: Temp Pulse Resp BP Pulse Ox 98.0 F 76 20 111/73 97 05/24/18 20:05 05/24/18 20:05 05/24/18 20:05 05/24/18 20:05 05/23/18 09:27 Assessment and Plan (1) Schizophrenia Current visit: Yes Status: Acute Plan: Continue hospitalization, Close observation, Suicide Precautions per unit protocol, Encourage participation in unit milieu, Group Therapy, Monitor sleep, Monitor appetite Risks, benefits, side effects, alternatives discussed w/pt: Yes Patient agreeable to treatment: Yes Qualifiers: Schizophrenia type: paranoid schizophrenia Qualified Code(s): F20.0 - Paranoid schizophrenia Consult Discharge Plan - Plan Referrals: Anand Norton [facility] [Outside] - 05/28/18 10:00 am (The above appointment is with Yamilet Rao for outpatient mental health counseling services. You will also see Libby Howell for outpatient psychiatric assessment and medication managment services on 06/14/2018 at 7:45AM.) Gail Booker [Advanced Practice Nurse] - 06/20/18 8:20 am (The above appointment is with Gail Booker for primary healthcare services.) Psychiatry Exam - Constitutional Vitals: Temp Pulse Resp BP Pulse Ox 98.0 F 76 20 111/73 97 05/24/18 20:05 05/24/18 20:05 05/24/18 20:05 05/24/18 20:05 05/23/18 09:27 General appearance: age & developmentally appropriate, well-groomed, well- nourished - Musculoskeletal Gait: normal Station: relaxed Strength & Tone: normal for patient - Psychiatric Patient Orientation: Yes Person, Yes Time, Yes Place Level of alertness: Alert Behavior: calm, cooperative Psychomotor activity: Slowed Eye Contact: Intense Contact Mood Description: Anxious Affect description: congruent with mood Speech Volume: Normal Speech pattern: normal rate, normal rhythm, normal tone, fluent, spontaneous Language & Vocabulary: consistent with education Thought Process: Linear Thought Content: No Suicidal ideation, No Homicidal ideation, No Overt delusions Perceptual Disturbances: Yes Reacting to internal stimuli, Yes Auditory hallucinations Attention Span Ability: Capable of Focused Attention Memory Description: Immediate Intact, Recent Impaired, Remote Intact Patient Reliability: Questionable Historian Fund of knowledge: Yes abstraction ability, Yes aware of current events Intelligence Estimate: Average Judgment: Limited Insight: Partial
[2018-05-25] MEDS: *HR* LORazepam 0.5 MG TABLET PO SCH ×2 (15:56→20:11)
[2018-05-25] MEDS: Divalproex (24 HR) 500 MG TABLET PO SCH (20:10)
[2018-05-25] MEDS: cloNIDine HCl 0.1 MG TABLET PO SCH (20:10)
[2018-05-25] MEDS: ARIPiprazole 10 MG TABLET PO SCH (20:11)
[2018-05-26] MEDS: hydrOXYzine pamoate 25 MG CAPSULE PO PRN ×3 (07:48→16:56)
[2018-05-26] MEDS: *HR* LORazepam 0.5 MG TABLET PO SCH ×3 (09:06→21:05)
[2018-05-26] MEDS: Nicotine 2 MG GUM BC PRN ×2 (09:09→12:20)
--- NOTE | 2018-05-26 09:45 | Psychiatry Progress Note ---
Date of Encounter: 05/26/18 Time of Encounter: 09:42 Subjective Interval history: Stephon remains psychotic. He is pleasant but he continues to have paranoia, anxiety, thought blocking, and disorganized behaviors. Some confusion over where he fills his meds and what his home doses are. Seroquel and Ativan restarted yesterday but doses may not have been obtained from most current pharmacy. Client reports he has recently been filling meds at [facility] and they will not be open until tomorrow. Stephon admits he was noncompliant with meds prior to presenting to hospital. Hopefully re-establishing him on his home regimen will help to stabilize him. Review of Systems Constitutional: Denies: fever, chills, weakness, weight change Eyes: Denies: eye pain, vision change Ears, Nose, Throat: Denies: ear pain, throat pain, dental pain, hearing loss, congestion Cardiovascular: Denies: chest pain, palpitations, dyspnea on exertion Respiratory: Denies: cough, dyspnea, wheezes Gastrointestinal: Denies: abdominal pain, nausea, vomiting, diarrhea, constipation Musculoskeletal: Denies: joint swelling, joint pain Neurological: Denies: headache, weakness, numbness, memory loss Results - Vital Signs Vital Signs: Temp Pulse Resp BP Pulse Ox 97.6 F 64 18 110/72 97 05/26/18 08:27 05/26/18 08:27 05/26/18 08:27 05/26/18 08:27 05/23/18 09:27 Assessment and Plan (1) Schizophrenia Current visit: Yes Status: Acute Plan: Continue hospitalization, Close observation, Suicide Precautions per unit protocol, Encourage participation in unit milieu, Group Therapy, Monitor sleep, Monitor appetite Risks, benefits, side effects, alternatives discussed w/pt: Yes Patient agreeable to treatment: Yes Qualifiers: Schizophrenia type: paranoid schizophrenia Qualified Code(s): F20.0 - Paranoid schizophrenia Consult Discharge Plan - Plan Referrals: Anand Norton [facility] [Outside] - 05/28/18 10:00 am (The above appointment is with Yamilet Rao for outpatient mental health counseling services. You will also see Libby Howell for outpatient psychiatric assessment and medication managment services on 06/14/2018 at 7:45AM.) Gail Booker [Advanced Practice Nurse] - 06/20/18 8:20 am (The above appointment is with Gail Booker for primary healthcare services.) Psychiatry Exam - Constitutional Vitals: Temp Pulse Resp BP Pulse Ox 97.6 F 64 18 110/72 97 05/26/18 08:27 05/26/18 08:27 05/26/18 08:27 05/26/18 08:27 05/23/18 09:27 General appearance: age & developmentally appropriate - Musculoskeletal Gait: normal Station: relaxed Strength & Tone: normal for patient - Psychiatric Patient Orientation: Yes Person, Yes Time, Yes Place Level of alertness: Alert Behavior: calm, cooperative Psychomotor activity: Slowed Eye Contact: Intense Contact Mood Description: Anxious Affect description: congruent with mood Speech Volume: Normal Speech pattern: normal rate, normal rhythm, normal tone, fluent, spontaneous Language & Vocabulary: consistent with education Thought Process: Linear Thought Content: No Suicidal ideation, No Homicidal ideation, No Overt delusions Perceptual Disturbances: Yes Reacting to internal stimuli, Yes Auditory hallucinations Attention Span Ability: Capable of Focused Attention Memory Description: Grossly Intact Patient Reliability: Reliable Historian Fund of knowledge: Yes abstraction ability, Yes aware of current events Intelligence Estimate: Average Judgment: Fair Insight: Partial
[2018-05-26] MEDS: Nicotine 14 MG PATCH.TD24 TD SCH (17:06)
[2018-05-26] MEDS: ARIPiprazole 10 MG TABLET PO SCH (21:03)
[2018-05-26] MEDS: cloNIDine HCl 0.1 MG TABLET PO SCH (21:03)
[2018-05-26] MEDS: Divalproex (24 HR) 500 MG TABLET PO SCH (21:04)
[2018-05-27] MEDS: *HR* LORazepam 0.5 MG TABLET PO SCH ×3 (08:22→20:44)
[2018-05-27] MEDS: Nicotine 14 MG PATCH.TD24 TD SCH (08:22)
[2018-05-27] MEDS: hydrOXYzine pamoate 25 MG CAPSULE PO PRN (12:17)
--- NOTE | 2018-05-27 13:43 | Psychiatry Progress Note ---
Date of Encounter: 05/27/18 Time of Encounter: 13:45 Subjective Interval history: Patient is a 23-year-old single white male. Chief complaint I would like to get out of here too good or residential program. The voices stopped 2 days ago History of present illness. The patient has a documented history of noncompliance he has a pending case for SSI. His medicines were verified in the pharmacy and I will briefly summarize Seroquel was at 25 mg will be increased 50 mg at bedtime BuSpar was at 7.5 mg twice a day will be increased to 10 mg twice a day Ativan remains at 0.5 mg 3 times a day. Vistaril he takes 50 mg 2-3 times per day as needed. Abilify was increased from 10 mg per day to 20 mg per day and he remains on clonidine 0.1 mg daily at bedtime. He does not tolerate trazodone as it causes nausea and sweating. The patient is on a 72 hold and while he is willing to stay he is unable to commit. I did discuss long-acting injectable aripiprazole with him. He did not want to take an injection as he was concerned about needles. Nonetheless he was reassured that this is not likely to be painful would be well tolerated when help with compliance and may be eventual relocation. The patient would like to relocate home. . The patient reported no side effects to his medicines. He reports being nervous and staying in his room from time to time as he does not like socializing with other people and some of the disturbance from the behaviors of others can upset him. Review of Systems Psychiatric: Reports: anxiety, auditory hallucinations Results - Vital Signs Vital Signs: Temp Pulse Resp BP Pulse Ox 97.8 F 67 16 122/74 97 05/27/18 08:48 05/27/18 08:48 05/27/18 08:48 05/27/18 08:48 05/23/18 09:27 Assessment and Plan (1) Generalized anxiety disorder Current visit: Yes Status: Acute Plan: Continue hospitalization, Close observation, Encourage participation in unit milieu, Group Therapy, Monitor sleep Risks, benefits, side effects, alternatives discussed w/pt: Yes Patient agreeable to treatment: Yes (2) Patient's noncompliance with other medical treatment and regimen Current visit: Yes Status: Acute Plan: Continue hospitalization, Close observation, Suicide Precautions per unit protocol, Encourage participation in unit milieu, Family/Supportive other meeting Risks, benefits, side effects, alternatives discussed w/pt: Yes Patient agreeable to treatment: Yes (3) Cannabis dependence Current visit: No Status: Acute Plan: Continue hospitalization, Close observation, Group Therapy, Monitor sleep Risks, benefits, side effects, alternatives discussed w/pt: Yes Patient agreeable to treatment: Yes (4) Paranoid schizophrenia Current visit: Yes Status: Acute Plan: Continue hospitalization, Close observation, Suicide Precautions per unit protocol, Encourage participation in unit milieu, Group Therapy, Monitor sleep, Monitor appetite, Secure weapons, Family/Supportive other meeting Risks, benefits, side effects, alternatives discussed w/pt: Yes Patient agreeable to treatment: Yes Consult Discharge Plan - Plan Referrals: Anand Norton [facility] [Outside] - 05/28/18 10:00 am (The above appointment is with Yamilet Rao for outpatient mental health counseling services. You will also see Libby Howell for outpatient psychiatric assessment and medication managment services on 06/14/2018 at 7:45AM.) Gail Booker [Advanced Practice Nurse] - 06/20/18 8:20 am (The above appointment is with Gail Booker for primary healthcare services.) Psychiatry Exam - Constitutional Vitals: Temp Pulse Resp BP Pulse Ox 97.8 F 67 16 122/74 97 05/27/18 08:48 05/27/18 08:48 05/27/18 08:48 05/27/18 08:48 05/23/18 09:27 General appearance: age & developmentally appropriate, well-groomed - Musculoskeletal Gait: normal Station: stiff Strength & Tone: normal for patient - Psychiatric Patient Orientation: Yes Person, Yes Time, Yes Place Level of alertness: Alert Affect description: anxious Speech Volume: Soft/Quiet Speech pattern: normal rate Language & Vocabulary: consistent with education Thought Process: Logical, Thought Blocking, Slowed Thinking Thought Content: Yes Suicidal ideation Perceptual Disturbances: Yes Auditory hallucinations Attention Span Ability: Capable of Focused Attention Memory Description: Grossly Intact Patient Reliability: Questionable Historian Fund of knowledge: Yes average Intelligence Estimate: Below Average Judgment: Limited Insight: Minimal
[2018-05-27] MEDS: cloNIDine HCl 0.1 MG TABLET PO SCH (20:44)
[2018-05-27] MEDS: ARIPiprazole 10 MG TABLET PO SCH (20:45)
[2018-05-27] MEDS: Divalproex (24 HR) 500 MG TABLET PO SCH (20:46)
[2018-05-28] MEDS: *HR* LORazepam 0.5 MG TABLET PO SCH ×3 (08:27→20:45)
[2018-05-28] MEDS: Nicotine 14 MG PATCH.TD24 TD SCH (08:29)
[2018-05-28] MEDS: hydrOXYzine pamoate 25 MG CAPSULE PO PRN ×2 (10:39→18:17)
--- NOTE | 2018-05-28 11:16 | Psychiatry Progress Note ---
Date of Encounter: 05/28/18 Time of Encounter: 11:00 Review of Systems Psychiatric: Reports: anxiety, auditory hallucinations, memory loss Results - Vital Signs Vital Signs: Temp Pulse Resp BP Pulse Ox 97.8 F 64 16 118/70 97 05/28/18 08:01 05/28/18 08:01 05/28/18 08:01 05/28/18 08:01 05/23/18 09:27 Assessment and Plan (1) Generalized anxiety disorder Current visit: Yes Status: Acute Risks, benefits, side effects, alternatives discussed w/pt: Yes Patient agreeable to treatment: Yes (2) Patient's noncompliance with other medical treatment and regimen Current visit: Yes Status: Acute Risks, benefits, side effects, alternatives discussed w/pt: Yes Patient agreeable to treatment: Yes (3) Cannabis dependence Current visit: No Status: Acute Risks, benefits, side effects, alternatives discussed w/pt: Yes Patient agreeable to treatment: Yes (4) Paranoid schizophrenia Current visit: Yes Status: Acute Risks, benefits, side effects, alternatives discussed w/pt: Yes Patient agreeable to treatment: Yes (5) Cigarette smoker one half pack a day or less Current visit: Yes Status: Acute Plan: Other Risks, benefits, side effects, alternatives discussed w/pt: Yes Patient agreeable to treatment: Yes Consult Discharge Plan - Plan Referrals: Anand Norton [facility] [Outside] - 06/14/18 7:45 am (The above appointment is with Libby Howell for outpatient psychiatric assessment and medication managment services. You will also see Yamilet Rao for outpatient mental health counseling services on ) Gail Booker [Advanced Practice Nurse] - 06/20/18 8:20 am (The above appointment is with Gail Booker for primary healthcare services.) Psychiatry Exam - Constitutional Vitals: Temp Pulse Resp BP Pulse Ox 97.8 F 64 16 118/70 97 05/28/18 08:01 05/28/18 08:01 05/28/18 08:01 05/28/18 08:01 05/23/18 09:27 General appearance: age & developmentally appropriate, well-groomed, well- nourished - Musculoskeletal Gait: normal Station: relaxed Strength & Tone: normal for patient - Psychiatric Patient Orientation: Yes Person, Yes Time, Yes Place Level of alertness: Alert Behavior: calm, cooperative Psychomotor activity: Normal Eye Contact: Maintains Eye Contact Mood Description: Anxious Affect description: congruent with mood, full range Speech Volume: Normal Speech pattern: normal rate, normal rhythm, normal tone, fluent, spontaneous Language & Vocabulary: consistent with education Thought Process: Linear, Goal Oriented, Slowed Thinking Thought Content: No Suicidal ideation, No Homicidal ideation, No Overt delusions , Yes Poverty of Content Perceptual Disturbances: Yes Auditory hallucinations, No Visual hallucinations Attention Span Ability: Capable of Focused Attention Memory Description: Grossly Intact Patient Reliability: Reliable Historian Fund of knowledge: Yes abstraction ability, Yes aware of current events Intelligence Estimate: Average Judgment: Fair Insight: Partial
[2018-05-28] MEDS: Divalproex (24 HR) 500 MG TABLET PO SCH (20:45)
[2018-05-28] MEDS: ARIPiprazole 10 MG TABLET PO SCH (20:45)
[2018-05-28] MEDS: cloNIDine HCl 0.1 MG TABLET PO SCH (20:45)
[2018-05-29] MEDS: *HR* LORazepam 0.5 MG TABLET PO SCH ×3 (08:52→20:51)
[2018-05-29] MEDS: Nicotine 14 MG PATCH.TD24 TD SCH (08:52)
[2018-05-29] MEDS: hydrOXYzine pamoate 25 MG CAPSULE PO PRN ×2 (11:04→19:07)
--- NOTE | 2018-05-29 11:56 | Psychiatry Progress Note ---
Date of Encounter: 05/29/18 Time of Encounter: 11:45 Subjective Interval history: ID the patient's a 23-year-old single white male. Chief complaint I know when I have to take my medicines, I am nervous when I get a shot I need to hold on to something. I get my lorazepam from 3 PM. History of present illness. The patient has continued to have confusion is organization. Today he carries around a list of his medicines he is aware that he is going to the [facility]. On the unit the patient's been calm and stabilized on his anti-anxiety medicines. Yesterday he had a court hearing which included involuntary hospitalization and medication. Today the patient is in agreement with the discharge plan to go to the [facility]. He has been told that he may have the opportunity to return home to attend to his room and other items. The patient does not like the idea of taking an injection would like to start physician about nonetheless he was informed this is a forced medication will be given today after he can take his oral lorazepam. Efforts will be made to make sure that is not a painful injection and the patient will be watched for any side effects and may have. The patient reluctantly agrees to this he slept 8.25 hours last night Review of Systems Psychiatric: Reports: anxiety, auditory hallucinations, confusion, memory loss Results - Vital Signs Vital Signs: Temp Pulse Resp BP Pulse Ox 96.0 F L 69 16 108/71 97 05/29/18 09:00 05/29/18 09:00 05/29/18 09:00 05/29/18 09:00 05/23/18 09:27 Assessment and Plan (1) Generalized anxiety disorder Current visit: Yes Status: Acute Risks, benefits, side effects, alternatives discussed w/pt: Yes Patient agreeable to treatment: Yes (2) Patient's noncompliance with other medical treatment and regimen Current visit: Yes Status: Acute Plan: Other Risks, benefits, side effects, alternatives discussed w/pt: Yes Patient agreeable to treatment: Yes (3) Cannabis dependence Current visit: No Status: Acute Plan: Other Risks, benefits, side effects, alternatives discussed w/pt: Yes Patient agreeable to treatment: Yes (4) Paranoid schizophrenia Current visit: Yes Status: Acute Plan: Continue hospitalization, Close observation, Suicide Precautions per unit protocol, Encourage participation in unit milieu, Group Therapy, Monitor sleep, Monitor appetite, Secure weapons, Family/Supportive other meeting Risks, benefits, side effects, alternatives discussed w/pt: Yes Patient agreeable to treatment: Yes (5) Cigarette smoker one half pack a day or less Current visit: Yes Status: Acute Risks, benefits, side effects, alternatives discussed w/pt: Yes Patient agreeable to treatment: Yes Consult Discharge Plan - Plan Referrals: Anand Norton [facility] [Outside] - 06/14/18 7:45 am (The above appointment is with Libby Howell for outpatient psychiatric assessment and medication managment services. You will also see Yamilet Rao for outpatient mental health counseling services on 06/06/2018 at 9:00am.) Gail Booker [Advanced Practice Nurse] - 06/20/18 8:20 am (The above appointment is with Gail Booker for primary healthcare services.) Psychiatry Exam - Constitutional Vitals: Temp Pulse Resp BP Pulse Ox 96.0 F L 69 16 108/71 97 05/29/18 09:00 05/29/18 09:00 05/29/18 09:00 05/29/18 09:00 05/23/18 09:27 General appearance: age & developmentally appropriate, well-groomed, well- nourished - Musculoskeletal Gait: normal Station: relaxed Strength & Tone: normal for patient - Psychiatric Patient Orientation: Yes Person, Yes Time, Yes Place Level of alertness: Alert Behavior: calm, cooperative Psychomotor activity: Normal Eye Contact: Maintains Eye Contact Mood Description: Anxious Affect description: full range, anxious Speech Volume: Normal Speech pattern: normal rate, normal rhythm, normal tone, fluent, spontaneous Language & Vocabulary: consistent with education Thought Process: Linear, Goal Oriented Thought Content: No Suicidal ideation, No Homicidal ideation, No Overt delusions Perceptual Disturbances: No Auditory hallucinations, No Visual hallucinations Attention Span Ability: Capable of Focused Attention Memory Description: Grossly Intact Patient Reliability: Reliable Historian Fund of knowledge: Yes abstraction ability, Yes aware of current events Intelligence Estimate: Average Judgment: Fair Insight: Partial
[2018-05-29 14:03] LABS: Alanine Aminotransferase 17 Units/L (7-52); Albumin 4.6 g/dL (3.5-5.7); Albumin/Globulin Ratio 1.7 (1.1-2.2); Alkaline Phosphatase 65 Units/L (34-104); Aspartate Amino Transferase 16 Units/L (13-39); BUN/Creatinine Ratio 15 (6-26); Bilirubin,Total 0.3 mg/dL (0.3-1.0); Blood Urea Nitrogen 18 mg/dL (6-20); Calcium 9.6 mg/dL (8.6-10.3); Carbon Dioxide 29 mEq/L (23-29); Chloride 100 mEq/L (98-107); Glucose 102 mg/dL (70-105); Osmolality,Calculated 286 (280-300); Potassium 4.2 mEq/L (3.5-5.1); Sodium 137 mEq/L (136-145); Total Protein 7.3 g/dL (6.4-8.9); eGFR For Non-African Americans > 60 (> 60)
[2018-05-29 14:04] LABS: Globulin 2.7 g/dL (2.4-3.5)
[2018-05-29] MEDS: Divalproex (24 HR) 500 MG TABLET PO SCH (20:51)
[2018-05-29] MEDS: ARIPiprazole 10 MG TABLET PO SCH (20:51)
[2018-05-29] MEDS: cloNIDine HCl 0.1 MG TABLET PO SCH (20:52)
[2018-05-30] MEDS: *HR* LORazepam 0.5 MG TABLET PO SCH (08:58)
[2018-05-30 09:02] VITALS: BP 110/70
--- NOTE | 2018-05-30 09:11 | Discharge Summary ---
Date of Encounter: 05/30/18 Time of Encounter: 09:00 Diagnosis - Discharge Diagnosis (1) Generalized anxiety disorder Priority: Secondary Status: Acute (2) Patient's noncompliance with other medical treatment and regimen Priority: Secondary Status: Acute (3) Cannabis dependence Priority: Secondary Status: Acute (4) Paranoid schizophrenia Priority: Primary Status: Acute (5) Cigarette smoker one half pack a day or less Priority: Secondary Status: Chronic Medications - Discharge Medications Prescriptions: Abilify Maintena 400 mg IM ONCE 1 Days #1 unit ARIPiprazole [Abilify] 20 mg PO HS 30 Days #30 tablet Benztropine [Cogentin] 1 mg PO DAILY 30 Days #30 tablet Buspirone HCl [Buspar] 7.5 mg PO BID 30 Days #60 tablet Buspirone HCl [Buspar] 10 mg PO BID 30 Days #30 tablet cloNIDine HCl [CloNIDine HCl] 0.1 mg PO HS 30 Days #30 tablet Divalproex (24 HR) [Depakote ER (24 HR)] 1,000 mg PO HS 30 Days #60 tab.er.24h HydrOXYzine Pamoate [Vistaril] 50 mg PO TID PRN 30 Days #90 capsule PRN Reason: Anxiety LORazepam [Ativan] 0.5 mg PO TID 30 Days #90 tablet Quetiapine Fumarate [Seroquel] 50 mg PO HS 30 Days #30 tablet ARIPiprazole [Abilify] 20 mg PO HS 30 Days #30 tablet 05/30/18 [Rx] Abilify Maintena 400 mg IM ONCE 1 Days #1 unit 05/30/18 [Rx] Benztropine [Cogentin] 1 mg PO DAILY 30 Days #30 tablet 05/30/18 [Rx] Buspirone HCl [Buspar] 7.5 mg PO BID 30 Days #60 tablet 05/30/18 [Rx] Buspirone HCl [Buspar] 10 mg PO BID 30 Days #30 tablet 05/30/18 [Rx] Divalproex (24 HR) [Depakote ER (24 HR)] 1,000 mg PO HS 30 Days #60 tab.er.24h 05/30/18 [Rx] HydrOXYzine Pamoate [Vistaril] 50 mg PO TID PRN 30 Days #90 capsule 05/30/18 [Rx ] LORazepam [Ativan] 0.5 mg PO TID 30 Days #90 tablet 05/30/18 [Rx] Quetiapine Fumarate [Seroquel] 50 mg PO HS 30 Days #30 tablet 05/30/18 [Rx] cloNIDine HCl [CloNIDine HCl] 0.1 mg PO HS 30 Days #30 tablet 05/30/18 [Rx] 3 Allergy/AdvReac Type Severity Reaction Status Date / Time Penicillins Allergy Anaphylaxis Verified 10/03/15 10:55 Results Procedures and tests throughout hospitalization: Completed Lab Orders Category Date Time Status Comprehensive Metabolic Panel Routine Lab 05/29/18 13:00 Completed Provider Date of admission: 05/23/18 18:50 Primary care physician: PCP NONE Discharging clinician: Turner Perales Psychiatry Exam - Constitutional Vitals: Temp Pulse Resp BP Pulse Ox 97.4 F L 57 16 110/70 97 05/30/18 09:00 05/30/18 09:00 05/30/18 09:00 05/30/18 09:00 05/23/18 09:27 General appearance: age & developmentally appropriate, well-groomed, well- nourished - Musculoskeletal Gait: normal Station: relaxed Strength & Tone: normal for patient - Psychiatric Patient Orientation: Yes Person, Yes Time, Yes Place Level of alertness: Alert Behavior: calm, cooperative Psychomotor activity: Normal Eye Contact: Maintains Eye Contact Mood Description: Euthymic/stable Affect description: congruent with mood, full range, constricted Speech Volume: Normal Speech pattern: normal rate, normal rhythm, normal tone, fluent, spontaneous Language & Vocabulary: consistent with education Thought Process: Linear, Goal Oriented Thought Content: No Suicidal ideation, No Homicidal ideation, No Overt delusions Perceptual Disturbances: No Auditory hallucinations, No Visual hallucinations Attention Span Ability: Capable of Focused Attention Memory Description: Grossly Intact Patient Reliability: Reliable Historian Fund of knowledge: Yes abstraction ability, Yes aware of current events Intelligence Estimate: Average Judgment: Fair Insight: Partial Hospital Course Hospital course: Mr. Ybarra is a 23 year old male The patient is a 23-year-old white male. The patient was hospitalized 2017. He had bizarre behavior grossly disorganized behavior disproved destroyed his homeroom he had hallucinations and delusions. The patient had some lack of community-based resources and required further stabilization. He gradually improved on Abilify and the dose was increased to 20 mg. The patient found the medicine sedating so the dose was changed to a nighttime dispersal. On 05/28/[address] of [facility] ordered the patient for continued involuntary hospitalization with a forced medication order. Even though the patient was reluctant to take Abilify maintaina Judy a long-acting injectable form of aripiprazole he did take this on the day prior to discharge he reported some pain at the injection site but otherwise was free of significant side effects such as EPS restlessness nausea and dizziness. The patient is on variety of medicines for generalized anxiety disorder. The patient and I discussed the need for adherence plan and he will be discharged to the [facility]. The patient also was advised not to smoke marijuana as this may worsen his psychosis. The patient did smoke cigarettes in 1-2 packs per day he was giving advice for smoking cessation however he declined to give up smoking at this time. Time spent discussing smoking cessation with patient: 3 to 10 minutes Does patient wish to continue nicotine replacement upon disc: No - Time Spent with Patient Total time spent providing and/or coordinating discharge services: Less than 30 minutes Assessment and Plan - Patient/Caregiver Discharge Instructions Activity: resume usual activities as tolerated Diet: regular diet Additional Instructions: Patient received Abilify Maintena 400mg on 05/29/2018. Next dose is due 2017 and every 4 weeks thereafter. - Follow up Plan Follow up with: Anand Norton [facility] [Outside] - 06/14/18 7:45 am (The above appointment is with Libby Howell for outpatient psychiatric assessment and medication managment services. You will also see Yamilet Rao for outpatient mental health counseling services on 06/06/2018 at 9:00am.) Gail Booker [Advanced Practice Nurse] - 06/20/18 8:20 am (The above appointment is with Gail Booker for primary healthcare services.) Functional capacity at discharge: independent ambulation Overall status at discharge: Stable Disposition: Home, Self-Care Quality - Multiple Antipsychotics Patient discharged on 2 or more antipsychotic medications: Yes - Justification Documentation of: Cross-taper in progress at time of discharge - Additional Details Additional Details: She was sleeping well with Seroquel. He has been started on a long-acting injectable aripiprazole. Therefore 2 antipsychotics are necessary at discharge. Procedures - Procedures Procedures: Medication Management, Crisis Stabilization, Supportive Therapy, Group Therapy, Psychoeducational Therapy
[2018-05-30] MEDS: Nicotine 14 MG PATCH.TD24 TD SCH ×2 (09:19→10:13)
[2018-06-01 00:21] LABS: Valproate Free <7 ug/mL (7-23); Valproate Total 71 ug/mL (50-125)
== END 2018-05-30 10:57 | disposition home or self-care (01) | DRG 750 ==
LOC: EMEROOARM 08:53 → 1ANU 08:53
PROVIDERS: ADMIT General Practice; ATTEND General Practice

== ENCOUNTER 2021-06-19 01:27 | Inpatient (IN) ==
[2021-06-19 03:11] LABS: Basophils % 0.2 %; Eosinophils % 0.2 %; Hematocrit 37.3 % (37.5-50.1); Immature Granulocytes % 0.4 % (0-4); Lymphocytes # 2.9 K/mcL (0.6-4.6); Lymphocytes % 22.6 %; Mean Corpuscular HGB Conc 34.9 g/dL (31.6-35.5); Mean Corpuscular Hemoglobin 33.5 pg (28.0-33.3); Mean Corpuscular Volume 96.1 fL (83.0-100.0); Mean Platelet Volume 9.2 fL (9.4-12.4); Monocytes # 0.6 K/mcL (0.0-1.3); Monocytes % 4.8 %; Neutrophils # 9.2 K/mcL (1.6-8.9); Platelet Count 310 K/mcL (140-400); Red Blood Count 3.88 M/mcL (4.19-5.50); Red Cell Distribution Width 11.8 % (11.5-14.5); Segmented Neutrophils % 71.8 %; White Blood Count 12.8 K/mcL (4.3-11.1)
[2021-06-19 03:19] LABS: Acetaminophen < 10 mcg/mL (10-20); BUN/Creatinine Ratio 11 (6-26); Blood Urea Nitrogen 11 mg/dL (6-20); Calcium 9.7 mg/dL (8.6-10.3); Carbon Dioxide 22 mEq/L (23-29); Chloride 104 mEq/L (98-107); Ethanol < 10 mg/dL (Less than 10); Glucose 114 mg/dL (70-105); Osmolality,Calculated 282 (280-300); Potassium 3.6 mEq/L (3.5-5.1); Salicylate < 2.5 mg/dL (15.0-30.0); Sodium 136 mEq/L (136-145); eGFR For African Americans > 60 (> 60); eGFR For Non-African Americans > 60 (> 60)
[2021-06-19 03:37] LABS: Bilirubin,Urine Negative (Negative); Blood,Urine Negative (Negative); Clarity,Urine Clear (Clear); Color,Urine Light-Yellow (Yellow); Glucose,Urine (UA) Normal (Normal); Ketones,Urine Negative (Negative); Leukocyte Esterase,Urine Negative (Negative); Nitrite,Urine Negative (Negative); Protein,Urine Trace mg/dL (Neg-Trace); Specific Gravity,Urine 1.016 (1.010-1.025); Urobilinogen,Urine Normal (Normal)
[2021-06-19 03:56] LABS: Amphetamine Screen,Urine Negative ng/mL (Cutoff=1000); Barbiturate Screen,Urine Negative ng/mL (Cutoff=200); Benzodiazepines Screen,Urine Negative ng/mL (Cutoff=200); Cannabinoid Screen,Urine Positive ng/mL (Cutoff = 50); Cocaine Screen,Urine Negative ng/mL (Cutoff= 300); Opiate Screen,Urine Negative ng/mL (Cutoff=300); Phencyclidine Screen,Urine Negative ng/mL (Cutoff=25)
[2021-06-19 04:38] LABS: Troponin I < 0.03 ng/mL (< 0.04)
[2021-06-19 07:30] LABS: Influenza A PCR Negative (Negative); Influenza B PCR Negative (Negative); Resp. Syncytial Virus PCR Negative (Negative)
[2021-06-19 07:31] LABS: SARS-CoV-2 by PCR (In House) Negative (Negative)
[2021-06-19] MEDS ORDERED: hydrOXYzine pamoate 25 MG CAPSULE PO PRN (09:44)
[2021-06-19] MEDS ORDERED: haloperidoL 5 MG TABLET PO PRN (09:44)
[2021-06-19] MEDS ORDERED: Acetaminophen 325 MG TABLET PO PRN (09:44)
[2021-06-19] MEDS ORDERED: *HR* LORazepam 1 MG TABLET PO PRN (09:44)
[2021-06-19] MEDS ORDERED: traZODone 50 MG TABLET PO PRN (09:44)
[2021-06-19] MEDS ORDERED: *HR* LORazepam 2 MG/ML VIAL IM PRN (09:44)
[2021-06-19] MEDS ORDERED: Haloperidol Lactate 5 MG/ML VIAL IM PRN (09:44)
[2021-06-19] MEDS ORDERED: QUEtiapine Fumarate 25 MG TABLET PO PRN (11:47)
[2021-06-19] MEDS ORDERED: Mag Hydrox/Al Hydrox/Simeth 30 ML UDC PO PRN (11:50)
[2021-06-19] MEDS ORDERED: MOM Conc 10 ML UD.LIQ PO PRN (11:50)
[2021-06-19] MEDS ORDERED: Nicotine 2 MG GUM BC PRN (11:50)
[2021-06-19] MEDS: OXcarbazepine 150 MG TABLET PO SCH ×2 (12:46→20:56)
[2021-06-19] MEDS: *HR* Buprenorphine HCl 8 MG TAB.SUBL SL SCH (12:46)
[2021-06-19] MEDS: Venlafaxine XR (24 HR) 37.5 MG CAP.ER.24H PO SCH (12:46)
[2021-06-19] MEDS: Nicotine 2 MG GUM BC PRN (18:33)
[2021-06-19] MEDS: diazePAM 5 MG TABLET PO SCH (20:57)
[2021-06-19] MEDS: Mirtazapine 15 MG TABLET PO SCH (20:57)
[2021-06-20] MEDS: Nicotine 2 MG GUM BC PRN ×4 (05:53→17:07)
[2021-06-20] MEDS: Venlafaxine XR (24 HR) 37.5 MG CAP.ER.24H PO SCH (09:11)
[2021-06-20] MEDS: OXcarbazepine 150 MG TABLET PO SCH ×2 (09:11→20:49)
[2021-06-20] MEDS: *HR* Buprenorphine HCl 8 MG TAB.SUBL SL SCH (09:11)
[2021-06-20] MEDS: diazePAM 5 MG TABLET PO SCH ×2 (09:11→20:49)
[2021-06-20] MEDS: QUEtiapine Fumarate 100 MG TABLET PO PRN (20:49)
[2021-06-20] MEDS: Mirtazapine 15 MG TABLET PO SCH (20:49)
[2021-06-21] MEDS: Nicotine 2 MG GUM BC PRN ×4 (07:13→17:15)
[2021-06-21] MEDS: *HR* Buprenorphine HCl 8 MG TAB.SUBL SL SCH (08:58)
[2021-06-21] MEDS: Venlafaxine XR (24 HR) 37.5 MG CAP.ER.24H PO SCH (08:58)
[2021-06-21] MEDS: OXcarbazepine 150 MG TABLET PO SCH ×2 (08:58→20:18)
[2021-06-21] MEDS: diazePAM 5 MG TABLET PO SCH ×2 (08:59→20:18)
[2021-06-21] MEDS: Mirtazapine 15 MG TABLET PO SCH (20:18)
[2021-06-21] MEDS: QUEtiapine Fumarate 100 MG TABLET PO PRN (20:18)
[2021-06-22] MEDS: Nicotine 2 MG GUM BC PRN ×3 (06:55→12:22)
[2021-06-22] MEDS: OXcarbazepine 150 MG TABLET PO SCH (08:35)
[2021-06-22] MEDS: *HR* Buprenorphine HCl 8 MG TAB.SUBL SL SCH (08:38)
[2021-06-22] MEDS: Venlafaxine XR (24 HR) 37.5 MG CAP.ER.24H PO SCH (08:38)
[2021-06-22] MEDS: diazePAM 5 MG TABLET PO SCH (08:38)
[2021-06-22 09:12] VITALS: BP 124/74; PULSE 100; TEMP 98.7; O2SAT 96
== END 2021-06-22 12:50 | disposition home or self-care (01) | DRG 885 ==
LOC: EMEROOARM 01:27 → INTOOBSV 09:25 → 1ANU 09:25
PROVIDERS: ADMIT Psychiatry & Neurology Psychiatry; ATTEND Psychiatry & Neurology Psychiatry